=== PATIENT | male | born 1950 ===

== ENCOUNTER → 2020-08-13 09:11 | Outpatient (CLI) | payer MEDICARE, MEDICAID ==
[2020-06-09 19:41] VITALS: BMI 17.8
[~2020-08-13 09:11] MED LIST: ACETAMINOPHEN325 MG PO; AUGMENTIN 875-11 TAB PO; FEXOFENADINE H180 MG PO; FLUTICASONE PRO16 GM NASAL; HYDROCODON-ACE1 EAC7 PO; IPRAT-ALBUT 0.5-3 ML UPD; LOW DOSE ASPIRI81 M1 PO; MIRALAX17 GM PO; MUCINEX600 MG PO; NYSTATIN100000 UN4 PO; PREDNISONE10 MG PO; PREDNISONE20 MG PO; PROAIR HFA8.5 G1 INH; PULMICORT0.5 MG/21 UPD; SINGULAIR10 MG PO; SYMBICORT 16010.2 GM INH; VENTOLIN HFA [SP8 GM INH
--- NOTE | 2020-08-13 13:39 | NUR ---
PATIENT CAME FOR A STRESS TEST TODAY. THE PROCEDURE WAS EXPLAINED TO HIM IN DETAIL AND HE SIGNED CONSENT TO PROCEED. WE STARTED AN IV AND GAVE THE FIRST DOSE OF THE NUCLEAR TRACER THROUGH THAT IV. HE WAITED THE REQUIRED 1 HOUR AND THEN DID HIS RESTING IMAGES. WHEN THE IMAGES WERE FINISHED AND IT WAS TIME TO DO THE STRESS PORTION, HE REFUSED TO HAVE IT DONE. HE SAID 'IF THIS IS GOING TO STRESS OUT MY HEART, I'M NOT HAVING IT DONE.' I REITERATED TO HIM THAT HE WAS HERE FOR A 'STRESS TEST' AND WE HAD ALREADY TALKED ABOUT THIS. I EXPLAINED TO HIM THAT WE WOULD GIVE HIM THE DOSE OF THE LEXISCAN TO INCREASE HIS HEART RATE AND ANY SYMPTOMS HE FELT FROM THAT WOULD NOT LAST VERY LONG. HE TOLD ME THAT HE FELT THAT IT IS TOO DANGEROUS AT THIS TIME FOR HIS HEART TO BE 'STRESSED.' HE SAYS HE HAS BEEN VERY SICK LATELY, BUT IS GETTING 'LEAPS AND BOUNDS' BETTER DAY BY DAY. RENETTA WAS NOTIFIED THAT HE WANTED TO LEAVE. HE CAME AND SPOKE WITH THE PATIENT TO MAKE SURE HE KNEW THAT HE WAS ALREADY LONGTERM DONE WITH THE TEST AND IF HE LEFT AND RESCHEDULED, THAT WE WOULD HAVE TO START ALL OVER. PATIENT WAS ALSO NOTIFIED THAT DR. NAVARRO IS AWARE OF HIS HEALTH SITUATION AND FEELS LIK THIS TEST IS APPROPRIATE. PATIENT STATED AGAIN THAT HE DID NOT FEEL IT WAS SAFE TO STRESS OUT HIS HEART IN ANY WAY AT THIS TIME AND WANTED TO LEAVE. IV REMOVED AND PATIENT WAS ESCORTED OUT. ADITI
--- NOTE | 2020-08-13 14:45 | NUR ---
DR. NAVARRO AWARE OF STRESS TEST SITUATION TODAY. HE SAID TO PROCESS THE IMAGES WE HAVE AND WE WILL PROCEED FROM THERE. ADITI
== END | disposition home or self-care (01) ==
LOC: D.HCCARDIO 08-03 09:00
PROVIDERS: ATTEND Internal Medicine Cardiovascular Disease
DX: I50.9 Heart failure, unspecified (principal)

== ENCOUNTER → 2020-08-20 11:36 | Outpatient (CLI) | payer MEDICARE, MEDICAID ==
[2020-06-09 19:41] VITALS: BMI 17.8
== END | disposition home or self-care (01) ==
LOC: D.LAB 11:36
PROVIDERS: ATTEND Internal Medicine Pulmonary Disease
DX: J44.9 Chronic obstructive pulmonary disease, unspecified (principal)

== ENCOUNTER → 2020-08-25 11:21 | Outpatient (CLI) | payer MEDICARE, MEDICAID ==
[2020-06-09 19:41] VITALS: BMI 17.8
== END | disposition home or self-care (01) ==
LOC: D.RT 10:30
PROVIDERS: ATTEND Internal Medicine Pulmonary Disease
DX: J44.9 Chronic obstructive pulmonary disease, unspecified (principal)

== ENCOUNTER → 2020-12-03 10:31 | Outpatient (CLI) | payer MEDICARE, MEDICAID ==
[2020-06-09 19:41] VITALS: BMI 17.8
--- NOTE | ~2020-12-03 | EC ---
PATIENT:NEFTALI CEDEÑO DATE OF SERVICE: 12/03/20 SEX: M MEDICAL RECORD: [id number] DATE OF : 52 LOCATION:D[facility] AGE OF PATIENT: 70 ADMISSION DATE: 12/03/20 REFERRING PHYSICIAN: INTERPRETING PHYSICIAN: CHALO LOPEZ MD ECHOCARDIOGRAM REPORT ECHO CHARGES 4 ECHO COMPLETE Date: 12/03/20 CLINICAL DIAGNOSIS: ASSESS EF/MITRAL/TRICUSPID REGURG HX OF CAD/CARDIOMYOPATHY/LOW EF ECHOCARDIOGRAPHIC MEASUREMENTS (adult normal given) AC root (d.<3.7cm) 3.8 cm LV Septum d (<1.2 cm> 1.4 cm Valve Excursion 1.8 cm LV Septum (systole) 1.6 cm Left Atria (s.<4.0cm> 4.0 cm LVPW d(<1.2cm) 1.6 cm RV (d.<2.3cm) 3.7 cm LVPW (sytole) 1.8 cm LV diastole(<5.6CM) 4.0 cm MV E-F(>70mm/sec) cm LV systole 2.7 cm LVOT Diameter 2.1 cm MV exc.(>10mm) 1.6 cm Est.ejection fraction (50-75%) % DOPPLER: LVIT cm/sec A 83.0 cm/sec E 50.0 cm/sec LA cm/sec RVSP 26 mmHg LVOT 91 cm/sec AOP1/2T m/s Asc. Ao 120 cm/sec RVOT 61 cm/sec RA cm/sec PA 101 cm/sec AV Gradient Peak 5.81 mmHg AV Mean 2.78 mmHg AV Area 3.4 cm MV Gradient Peak 4.36 mmHg MV Mean 1.18 mmHg MV Area cm COMMENTS: Produce Service Team Member: 2 YVAN MOSQUEDA Optical Effects Line Up Person: 3 Dr. Ivan TAPE# PACS Pericardial Effusion N DATE OF SERVICE: Adequate 2D, color-flow imaging, spectral Doppler, and M-Mode FINDINGS: LVH is present. LV internal dimensions are normal. EF appears to be lower limits of normal, 45-50%. Aortic valve is tricuspid. No evidence of stenosis by Doppler interrogation. Left atrium is normal at 4.0 cm. Mitral valve shows no prolapse. Trace MR. Right-sided chambers are grossly normal. ECHOCARDIOGRAM REPORT [id number] NEFTALI CEDEÑO Trace TR. TRANSINT:[id number] Voice Confirmation ID: [id number] DOCUMENT ID: [id number] CHALO LOPEZ MD CC: [id number] DICTATION DATE: 12/04/20918 UTILITY FORESTER: 12/04/20 1341 DEP CLI 12/03/20 [place] [id number] [place] [id number]
== END | disposition home or self-care (01) ==
LOC: D.HCCECHO 10:31
PROVIDERS: ATTEND Internal Medicine Interventional Cardiology
DX: I10 Essential (primary) hypertension (principal)